=== PATIENT | female | born 1985 | race African-American/Black ===

== ENCOUNTER 2021-04-24 23:04 | Emergency (ER) | payer OTHER ==
[~2021-04-24] VITALS: Ht 182.9 cm; Wt 122.5 kg
[2021-04-25 01:29] VITALS: BP 132/88
== END 2021-04-25 01:30 | disposition home or self-care (01) ==
LOC: ER 23:04
DX: M25.511 Pain in right shoulder (principal); M79.644 Pain in right finger(s); X50.0XXA Overexertion from strenuous movement or load, initial encounter; Y93.89 Activity, other specified; Y92.89 Other specified places as the place of occurrence of the external cause; Y99.8 Other external cause status